=== PATIENT | female | born 1995 | race American Indian/Alaskan Native ===

== ENCOUNTER 2017-10-26 13:36 | Emergency (ER) | payer SELFPAY ==
[2017-10-26 14:45] LABS: Bilirubin,Urine NEG (Negative); Blood,Urine NEG (Negative); Color,Urine Yellow (Yellow); Mucus,Urine FEW /HPF; Protein,Urine <15 mg/dL mg/dL (Negative); Urobilinogen,Urine < 2.0 mg/dL (<2.0)
[2017-10-26 14:57] LABS: Amphetamine Screen,Urine PRESUMPTIVE NEGATIVE; Benzodiazepines Screen,Urine PRESUMPTIVE NEGATIVE; Cocaine Screen,Urine PRESUMPTIVE NEGATIVE; Methadone Screen,Urine PRESUMPTIVE NEGATIVE; Opiate Screen,Urine PRESUMPTIVE NEGATIVE
[2017-10-26 15:03] LABS: HCG Qualitative,Urine Positive (Negative)
--- NOTE | 2017-10-26 15:05 | Emergency Department Report ---
HPI - General Chief Complaint: Psych Time Seen by Provider: 10/26/17 14:34 - HPI HPI: Room 16 The patient is a 22-year-old female presenting with a chief complaint of suicidal ideation. The patient states approximately one hour prior to EMS arrival she had intentionally took twelve 25 mg Phenergan tablets in a suicide attempt. Patient denies any other coingestants or attempt at harming herself. The patient states she currently feels dizzy. Location: Mental state Duration: [See above] Quality: Suicidal Severity: Severe Modifying factors: [see above] Context: [see above] Mode of transportation: [not driving] ED Past Medical Hx - Past Medical History Previous Medical History?: Yes Hx Asthma: Yes - Surgical History Past Surgical History?: No Additional Surgical History: - Family History Family history: no significant - Social History Smoking Status: Never Smoker Substance Use Type: None (denies illicit drug use) ED Review of Systems ROS: Stated complaint: OD-PROMETHAZINE Other details as noted in HPI Constitutional: no symptoms reported Neurological: other (dizziness) Psychiatric: suicidal thoughts Physical Exam - Physical Exam Vital Signs: Vital Signs 10/26/17 13:59 Temperature 99.3 F Pulse Rate 99 H Respiratory 16 Rate Blood Pressure 113/70 Blood Pressure 113/70 [Right] O2 Sat by Pulse 100 Oximetry Physical Exam: GENERAL: The patient is well-developed well-nourished female lying on stretcher not appearing to be in acute distress. [] HEENT: Normocephalic. Atraumatic. Extraocular motions are intact. Patient has moist mucous membranes. No nystagmus NECK: Supple. No meningitic signs are noted. There is no adenopathy noted. CHEST/LUNGS: Clear to auscultation. There is no respiratory distress noted. HEART/CARDIOVASCULAR: Regular. There is no tachycardia. There is no gallop rub or murmur. ABDOMEN: Abdomen is soft, nontender. Patient has normal bowel sounds. There is no abdominal distention. SKIN: There is no rash. There is no edema. There is no diaphoresis. NEURO: The patient is awake, alert, and oriented. The patient is cooperative. The patient has normal speech and gait. MUSCULOSKELETAL: There is no evidence of acute injury. ED Course Vital Signs 10/26/17 13:59 Temperature 99.3 F Pulse Rate 99 H Respiratory 16 Rate Blood Pressure 113/70 Blood Pressure 113/70 [Right] O2 Sat by Pulse 100 Oximetry - Consultations Consultation #1: 10/26/17 15:08 Poison control called 10/26/17 15:16 Case discussed with poison control. Recommends observation for a minimal 4-6 hours. May have mild anticholinergic symptoms with promethazine overdose. Peaks in approximately 2.6 hours. States may check a Tylenol and salicylate level is it has been at least 1 hour since ingestion. If those results are negative there is no need for further assay. Tylenol or salicylate levels aren' t detectable then a 4 hour Tylenol/salicylate level should be redrawn ED Medical Decision Making - Lab Data Result diagrams: 10/26/17 15:01 10/26/17 15:01 - Radiology Data Radiology results: report reviewed (preliminary ultrasound report. ) Pelvic ultrasound (preliminary report)- IVP noted with heart rate of 160 bpm. No evidence of abruption. - Differential Diagnosis suicidal ideation, promethazine overdose Critical care attestation.: If time is entered above; I have spent that time in minutes in the direct care of this critically ill patient, excluding procedure time. ED Disposition Clinical Impression: Suicidal ideation, Intentional drug overdose, Disposition: [id number] PSY HOSP/PSY UNIT Is pt being admited?: No Does the pt Need Aspirin: No Condition: Stable Referrals: PRIMARY CARE, [Primary Care Provider] - 3-5 Days Time of Disposition: 20:22 (awaiting acceptance)
[2017-10-26 15:13] LABS: Mean Corpuscular HGB Conc 36 % (30-34); Mean Corpuscular Hemoglobin 35 pg (28-32); Mean Corpuscular Volume 98 fl (79-97); Platelet Count 275 K/mm3 (140-440); Red Blood Count 3.72 M/mm3 (3.65-5.03); Red Cell Distribution Width 13.4 % (13.2-15.2)
[2017-10-26 15:22] LABS: Cannabinoid Screen,Urine PRESUMPTIVE POSITIVE
[2017-10-26 15:23] LABS: Hematocrit 36.4 % (30.3-42.9); Hemoglobin 13.2 gm/dl (10.1-14.3)
[2017-10-26 15:28] LABS: Lymphocytes % (Auto) 23.5 % (13.4-35.0); Monocytes % (Auto) 6.8 % (0.0-7.3)
[2017-10-26 15:29] LABS: Basophils % (Auto) 0.5 % (0.0-1.8); Eosinophils % (Auto) 0.4 % (0.0-4.3); Lymphocytes # (Auto) 1.6 K/mm3 (1.2-5.4); Monocytes # (Auto) 0.5 K/mm3 (0.0-0.8)
[2017-10-26 15:34] LABS: BUN/Creatinine Ratio 13; Blood Urea Nitrogen 5 mg/dL (7-17); Calcium 9.7 mg/dL (8.4-10.2); Hemolysis Index 1
--- NOTE | 2017-10-26 22:24 | Ultrasound Report ---
FINAL REPORT EXAM: US OB < = 14 WEEKS FETUS HISTORY: suicide attempt, TECHNIQUE: Obstetrical pelvic sonographic imaging was performed Comparison: None FINDINGS: Images demonstrate uterus to measure 11.4 x 9.6 x 10.1 centimeters. Within the uterus, there is a gestational sac containing a pole. By crown-rump length of 6.3 millimeters, estimated gestational age is 12 weeks 5 days. heart rate measures 168 beats per minute. Right ovary measures 4.4 x 1.8 x 1.9 centimeters. Left ovary measures 2.8 x 1.7 x 1.7 centimeters. Both ovaries demonstrate normal color flow. Posterior developing placenta shows no definite evidence for abruption or hemorrhage, noting that there is low sensitivity on ultrasound for abruption. There is no free pelvic fluid. IMPRESSION: Single live intrauterine gestation at 12 weeks 5 days with estimated due date 05/05/2018. heart rate measures 168 beats per minute. No sonographic evidence for abruption, noting that ultrasound has low sensitivity for abruption.
--- NOTE | 2017-10-27 15:57 | Consultation ---
History of Present Illness - Reason for Consult Consult date: 10/27/17 Reason for consult: Mental Health Evaluation Requesting physician: NICOLASA PENALOZA - Chief Complaint Chief complaint: "I don't want to live anymore" - History of Present Psychiatric Illness 22-year-old AA female presenting with a chief complaint of suicidal ideation. Today the patient is calm and cooperative during the assessment. Per the record , the patient took 12 Phenergan 25 mg tablets in an attempt to kill herself. She stated that she is tired of living. She stated feeling hopeless, sad, and helpless when she took the pills. She stated that she has 2 kids, going through a divorce, and from her boyfriend currently. She stated that her life is "messed up." She continue to endorse SI's. She would not confirm or deny a suicide plan when asked. She denies a psy hx or a previous suicidal attempt. She is aware that she could have caused harm to her unborn child per her actions. She denies HI's and AVH's. She denies a poor appetite and erratic sleep. She acknowledge smoking marijuana, but denies alcohol consumption (etoh) . Medications and Allergies Allergies Allergy/AdvReac Type Severity Reaction Status Date / Time tramadol Allergy Hives Verified 10/26/17 14:29 Home Medications Medication Instructions Recorded Confirmed Last Taken Type ALBUTEROL Inhaler 2 sprays PRN 10/26/17 10/26/17 10/25/17 History 2 puffs Past psychiatric history - Past Medical History Past Medical History: other (Currently ) Past Surgical History: No surgical history - past Psychiatric treatment and history psychiatric treatment history: Denies a psy hx and a fam psy hx. Mental Status Exam - Vital signs Last Vital Signs Temp 99.2 F 10/27/17 10:00 Pulse 103 H 10/27/17 10:00 Resp 18 10/27/17 10:00 BP 106/62 10/27/17 10:00 Pulse Ox 99 10/26/17 20:41 - Exam Narrative exam: MSE: Appearance: calm, cooperative Behavior: regular eye contact Speech: regular rate and low tone Mood: "depressed" withdrawn Affect: flat Thought Process: circumstantial Thought Content: denies HI's and AVH's Motor Activity: ambulatory Cognition: A/O x 3 Insight: variable Judgment: variable Results Result Diagrams: 10/26/17 15:01 10/26/17 15:01 Abnormal lab results 10/26/17 10/26/17 Range/Units 15:01 15:01 Salicylates < 0.3 L (2.8-20.0) mg/dL Acetaminophen < 5.0 L (10.0-30.0) ug/mL All other labs normal. Assessment and Plan Assessment and plan: Impression: MDD, Severe type. Cannabis Use DO. Today the patient is calm and cooperative during the assessment.The patient continues to endorse SI's. DDx: R/O Bipolar DO, R/O Substance Induced Mood DO Recommendation/Plan: Continue 1013 with placement to inpatient psy services. Discussed/Risk benefits of SSRI for depression during . Caution is advised when taking SSRI's during especially during the 3rd trimester. At this time the prefer therapy for treatment.
[2017-10-28] MEDS ORDERED: PRENATAL VITAMIN PO SCH (10:00)
[2017-10-28 11:10] VITALS: BP 102/58
== END 2017-10-28 10:35 ==
LOC: EEVIPCON 13:36 → ED 13:36
DX: O9A.211 Injury, poisoning and certain other consequences of external causes complicating pregnancy, first trimester (principal); T43.3X2A Poisoning by phenothiazine antipsychotics and neuroleptics, intentional self-harm, initial encounter; R45.851 Suicidal ideations; Z3A.12 12 weeks gestation of pregnancy; Y92.89 Other specified places as the place of occurrence of the external cause
CPT/HCPCS: 36415; 76801; 80048; 80307; 81001; 81025; 85025; 99285; G0480; 80320